=== PATIENT | male | born 1950 | race Caucasian/White ===

== ENCOUNTER 2016-12-10 13:30 | Inpatient (IN) | payer OTHER ==
[2016-12-10 14:16] VITALS: BMI 31.1
[2016-12-17] MEDS ORDERED: CEFAZOLIN/Water 2 GM/20 ML SYRINGE ONE (08:39)
[2016-12-17] MEDS ORDERED: diphenhydrAMINE 25 MG CAP PO PRN (08:40)
[2016-12-17] MEDS ORDERED: Zolpidem Tartrate 5 MG TAB PO PRN ×2 (08:40→09:47)
[2016-12-17] MEDS ORDERED: Acetaminophen 325 MG TAB PO PRN (08:40)
[2016-12-17] MEDS ORDERED: Promethazine HCl 25 MG/ML VIAL IM PRN ×3 (08:40→12:58)
[2016-12-17] MEDS ORDERED: Ondansetron HCl/PF 4 MG/2 ML Vial IVP PRN ×3 (08:40→12:58)
[2016-12-17] MEDS ORDERED: HYDROcodone/Acetaminophen 10/325 mg Tablet PO PRN ×2 (08:40)
[2016-12-17] MEDS ORDERED: Fentanyl 100 MCG/2 ML VIAL SLOW IVP PRN ×2 (08:40)
[2016-12-17] MEDS ORDERED: traMADol HCl 50 MG TAB PO PRN ×2 (08:40→09:47)
[2016-12-17] MEDS ORDERED: Tranexamic Acid 1,000 MG/100 ML BAG ONE ×2 (08:41→12:54)
[2016-12-17] MEDS ORDERED: Tranexamic Acid 1,000 MG in Sodium Chloride 0.9% 100 ML IVPB SCH ×2 (08:45→12:45)
[2016-12-17] MEDS ORDERED: Midazolam HCl 2 mg/2 ml Vial ONE ×2 (09:13→09:49)
[2016-12-17] MEDS ORDERED: Fentanyl 100 MCG/2 ML VIAL ONE ×5 (09:13→13:17)
[2016-12-17] MEDS ORDERED: Vancomycin HCl 1.5 GM in Sodium Chloride 0.9% 250 ML 300 ML IVPB SCH (09:15)
--- NOTE | 2016-12-17 09:32 | RAD ---
CHEST 2 VIEWS: Date: 12/17/16 HISTORY: Preop. COMPARISON: 03/15/08. FINDINGS: Heart size is borderline. Aorta is mildly tortuous. The lungs are clear of infiltrates. There are ar thritic changes of the spine. IMPRESSION: Borderline heart size. POS: OFF
[2016-12-17] MEDS ORDERED: Ropivacaine HCl/PF 250 ML in Premix Bag 1 BAG NERVE BLCK SCH (09:47)
[2016-12-17] MEDS ORDERED: Fentanyl 100 MCG/2 ML VIAL IV PRN (09:47)
[2016-12-17] MEDS ORDERED: HYDROcodone/Acetaminophen 5/325 mg Tablet PO PRN (09:47)
[2016-12-17] MEDS ORDERED: Lidocaine 2% PF 10 ML AMP (For Epidural Use) ONE (11:13)
[2016-12-17] MEDS ORDERED: Propofol 200 MG/20 ML VIAL ONE (11:13)
[2016-12-17] MEDS: Aspirin 325 MG TAB PO SCH ×2 (11:23→20:33)
[2016-12-17] MEDS: Sodium Chloride 0.9% 1,000 ML IV SCH ×2 (11:23→18:21)
[2016-12-17] MEDS ORDERED: Promethazine HCl 25 MG/ML VIAL SLOW IVP PRN (12:58)
--- NOTE | 2016-12-17 12:58 | OP ---
PREOPERATIVE DIAGNOSIS: Degenerative joint disease of right knee. POSTOPERATIVE DIAGNOSIS: Degenerative joint disease of right knee. SURGEON: Boogie Storm M.D. HOTEL ROOM ATTENDANT: Abe Gay PA-C. BLOOD LOSS: Minimal. SPECIMEN: None. DRAINS: None. COMPLICATIONS: None. PROCEDURE IN DETAIL: After informed consent was obtained in the preoperative holding area. The pat ient was taken to the operative suite where general anesthesia was induced. Once adequate level of general anesthesia was obtained, the patient was positioned and a well-padded tourniquet was placed around the right proximal thigh. The right lower extremity was then prepped and draped in the usual sterile fashion. Prior to exsanguination, a time out was called and all members of the surgical te am agreed upon site, surgeon, and patient. The extremity was then exsanguinated and the tourniquet was raised. A midline longitudinal incision was then made directly over the patella extending two f ingerbreadths above the superior pole of the patella and two fingerbreadths inferior to the inferior patellar pole of the patella. Deeper subcutaneous layers were dissected sharply and local bleeding was controlled with Bovie electrocautery. A quad tendon longitudinal split was then made sharply a nd a median parapatellar arthrotomy was carried out both sharp and with Bovie electrocautery, ash d down to one fingerbreadth medial to the tibial tubercle. The knee was then placed into flexion an d the patella was everted nicely, and a copious fat pad ectomy was performed allowing for greater ex posure of the tibia. The computer-assisted distal femoral fiducial was then placed and pinned firml y, and the distal femoral cutting guide was pinned firmly into place. The oscillating saw was then used to remove the appropriate amount of bone. The 4-in-1 cutting block was then placed on the dist al femur and the oscillating saw was used to remove the appropriate amount of bone off of the anteri or, posterior, and chamfer cuts. After completion of bone cuts, the anterior cruciate ligament was resected sharply and the posterior cruciate ligament retractor was placed and the tibia was subluxed for better exposure. Partial meniscectomies were carried out, and the tibial computer-assisted fid ucial was pinned, and the cutting guide was placed. Oscillating saw was then used to remove the bon e with Hohmann retractors used to take care and protect the collateral ligaments. After the tibial resection was performed, a laminar service administrator was placed in between the freshened bone cuts. The knee placed at 90 degrees and further bilateral meniscectomies were carried out, and the curved osteotom e and curettage was used to remove any excess bone spurs in the posterior compartment. Exparel was then injected into the posterior capsule, kalli-articular synovia, pre-patella synovia, and musculatu re surrounding the capsule. The trial femoral component, tibial baseplate were placed with the appr opriate polyethylene trial insert with an appropriate polyethylene spacer and patellar button. The knee was taken through full range of motion with flexion and extension from 0-90 degrees and patell ar broach squarely in the trochlea without any squinting or subluxation noted. The knee was also st able to varus and valgus stressing at 0, 15, 45, and 90 degrees of flexion. The drawer was negative . All trial components were then removed and the keel punch was used to provide the appropriate defe ct in the tibia with a mallet. The freshened bone cuts were copiously irrigated with pulsatile lava ge of about 1-1/2 liters to remove all excess debris. The freshened bone cuts were then dried and w ith suction and lap sponge. The knee was placed in flexion and retractors were placed to provide ac cess to all bone cuts. Tobramycin impregnated methyl methacrylate cement was then placed on the castro shened bone cuts and implants which were malleted firmly into place. Curettage and [place] elevators were used to remove any excess bone cement. The knee was placed into full extension and the patella r button was placed under compression, and the cement was allowed to cure. Once completed, the comp onents were again taken through full range of motion and copious irrigation of the knee was carried out with another liter of normal saline. All components were inspected fully with full range of mot ion and varus and valgus stressing. There was no laxity noted and full extension was observed clinic ally. Primary closure was accomplished with #2 interrupted Vicryl stitch of the arthrotomy defect. This was oversewn with a #2 running Quill barbed stitch. The gravitational platelet system was the n injected into the arthrotomy prior to closure. The subcutaneous layer was then closed with a runn ing 0 barbed Monocryl stitch and skin closure accomplished with a running subcuticular 3-0 Monocryl barbed Quill stitch and augmented with cement on the skin. Tourniquet was lowered. Good spontaneou s return of distal pulses was noted clinically and a sterile dressing was applied to the incision. The procedure was terminated without any complications. The patient was awakened in the operative s uite and the tourniquet was removed, and the patient was taken to the recovery room in stable condit ion.
--- NOTE | 2016-12-17 14:07 | RAD ---
TWO VIEWS RIGHT KNEE: Date: 12-17-16 Comparison: none. History: Evaluate knee following arthroplasty. FINDINGS: Post-operative fluid and gas noted in the suprapatellar bursa anterior to the right knee joint. The patient is status post total knee arthroplasty with a tibial and femoral component noted, well seate d without evidence for hardware failure, acute fracture, or dislocation. There is posterior patella post-operative change noted as well. IMPRESSION: Findings consistent with recent total knee arthroplasty on the right. POS: [facility]
--- NOTE | 2016-12-17 15:03 | PDOC.PN ---
- Subjective Encounter Start Date: 12/17/16 Encounter Start Time: 15:01 Pt seen for followup of medical comorbidities, including hypertension. Denies chest pain, shortness of breath, fevers or chills. - Objective MAR Reviewed: Yes Vital Signs & Weight: Vital Signs (12 hours) Temp Pulse Resp BP Pulse Ox 12/17/16 13:50 98.2 F 77 18 126/85 95 Weight Weight 230 lb Phys Exam - Physical Examination Constitutional: NAD HEENT: moist MMs Neck: supple Respiratory: no wheezing, no rales, no rhonchi, clear to auscultation bilateral Cardiovascular: RRR Gastrointestinal: soft, non-tender Musculoskeletal: pulses present s/p R knee surgery Neurological: moves all 4 limbs Psychiatric: normal affect Skin: no rash Dx/Plan (1) Hypertension Code(s): I10 - ESSENTIAL (PRIMARY) HYPERTENSION Status: Chronic (2) BPH (benign prostatic hyperplasia) Code(s): N40.0 - BENIGN PROSTATIC HYPERPLASIA WITHOUT LOWER URINRY TRACT SYMP Status: Chronic (3) Osteoarthritis Code(s): M19.90 - UNSPECIFIED OSTEOARTHRITIS, UNSPECIFIED SITE Status: Chronic - Plan * . Monitor vital signs, titrate antihypertensives as needed. PRN IV hydralazine for blood pressure spikes. Continue Flomax. s/p R knee surgery. DVT prophylaxis and pain management per orthopedic surgery. Review of Systems - Review of Systems Constitutional: negative: Fever, Chills, Sweats, Weakness, Malaise Respiratory: negative: Cough, Dry, Shortness of Breath, Hemoptysis, SOB with Excertion, Pleuritic Pain, Sputum, Wheezing Cardiovascular: negative: Chest Pain, Palpitations, Orthopnea, Paroxysmal Noc. Dyspnea, Edema, Light Headedness - Medications/Allergies Allergies/Adverse Reactions: Allergies Allergy/AdvReac Type Severity Reaction Status Date / Time No Known Allergies Allergy Unverified 12/10/16 14:18 Medications: Current Medications Acetaminophen (Tylenol) 650 mg PO Q4H PRN PRN Reason: SIMMS/ T > 101F; Mild Pain (1-3) Hydrocodone Bitart/Acetaminophen ([place] 5/325) 1 tab PO Q4H PRN PRN Reason: Mild Pain (1-3) Hydrocodone Bitart/Acetaminophen ([place] 5/325) 2 tab PO Q4H PRN PRN Reason: For Moderate Pain 4-6 Aspirin (Aspirin) 325 mg PO BID [facility] Last Admin: 12/17/16 11:23 Dose: Not Given Cefazolin Sodium (Ancef) 2 gm SLOW IVP 0100,0900,1700 [facility] Stop: 12/18/16 01:01 Clorazepate Dipotassium (Tranxene) 3.75 mg PO ASDIR PRN PRN Reason: Anxiety Diphenhydramine HCl (Benadryl) 25 mg PO Q6H PRN PRN Reason: Itching Fentanyl (Sublimaze) 50 mcg IV Q1H PRN PRN Reason: BREAKTHROUGH PAIN Fentanyl (Pacu-Sublimaze) 50 mcg SLOW IVP Q10MIN PRN PRN Reason: Moderate to Severe Pain (6-10) Stop: 12/17/16 15:59 Ferrous Gluconate (Fergon) 324 mg PO BID-[facility] Sodium Chloride (Normal Saline 0.9%) 1,000 mls @ 100 mls/hr IV .Q10H [facility] Last Admin: 12/17/16 11:23 Dose: Not Given Ropivacaine 250 ml/ Device 250 mls @ 0 mls/hr NERVE BLCK INF [facility] PRN Reason: As Directed Iron/Minerals/Multivitamins (Theragran M) 1 tab PO DAILY [facility] Ketorolac Tromethamine (Toradol) 15 mg IVP Q6H PRN PRN Reason: Moderate Pain (4-6) Stop: 12/20/16 09:48 Lisinopril (Zestril) 20 mg PO HS [facility] Ondansetron HCl (Zofran) 4 mg IVP Q6H PRN PRN Reason: Nausea/Vomiting Ondansetron HCl (Pacu-Zofran) 4 mg IVP ONE PRN PRN Reason: Nausea/Vomiting Stop: 12/17/16 15:59 Fluticasone Propionate Micro 25g Powder 0 each INH DAILY [facility] Promethazine HCl (Phenergan) 12.5 mg IM Q4H PRN PRN Reason: Nausea Promethazine HCl (Pacu-Phenergan) 6.25 mg SLOW IVP ONE PRN PRN Reason: Nausea/Vomiting Stop: 12/17/16 15:59 Promethazine HCl (Pacu-Phenergan) 6.25 mg IM ONE PRN PRN Reason: Nausea/Vomiting Stop: 12/17/16 15:59 Senna/Docusate Sodium (Senokot S) 2 tab PO BID [facility] Sodium Chloride (Flush - Normal Saline) 10 ml IVF PRN PRN PRN Reason: Saline Flush Tamsulosin HCl (Flomax) 0.4 mg PO HS [facility] Tramadol HCl (Ultram) 50 mg PO Q6H PRN PRN Reason: Mild Pain (1-3) Tramadol HCl (Ultram) 100 mg PO Q6H PRN PRN Reason: Moderate Pain 4-6 Zolpidem Tartrate (Ambien) 5 mg PO HSPRN PRN PRN Reason: Insomnia
[2016-12-17] MEDS: Ketorolac Tromethamine 30 MG/ML VIAL IVP PRN (15:04)
[2016-12-17] MEDS ORDERED: hydrALAZINE 20 MG/ML VIAL SLOW IVP PRN (15:06)
[2016-12-17] MEDS ORDERED: Ropivacaine 0.5% HCl/PF (150 MG/30 ML VIAL) ONE (15:18)
[2016-12-17] MEDS ORDERED: Ropivacaine 0.2% HCl/PF (40 MG/20 ML VIAL) ONE (15:19)
[2016-12-17] MEDS: CEFAZOLIN/Water 2 GM/20 ML SYRINGE SLOW IVP SCH (18:23)
[2016-12-17] MEDS: Lisinopril 20 MG TAB PO SCH (20:33)
[2016-12-17] MEDS: Tamsulosin HCl 0.4 MG CAP PO SCH (20:33)
[2016-12-17] MEDS: HYDROcodone/Acetaminophen 5/325 mg Tablet PO PRN (20:36)
[2016-12-17] MEDS ORDERED: Zolpidem Tartrate 5 MG TAB PO SCH (21:00)
[2016-12-17] MEDS ORDERED: Fluticasone Propionate Nasal Spray 16 gm Bottle NASAL PRN (21:45)
[2016-12-18] MEDS: CEFAZOLIN/Water 2 GM/20 ML SYRINGE SLOW IVP SCH (01:30)
[2016-12-18] MEDS: HYDROcodone/Acetaminophen 5/325 mg Tablet PO PRN ×2 (02:44→06:35)
[2016-12-18] MEDS: Sodium Chloride 0.9% 1,000 ML IV SCH ×2 (04:46→08:48)
[2016-12-18] MEDS: traMADol HCl 50 MG TAB PO PRN (05:44)
[2016-12-18 06:38] LABS: Hematocrit 45.4 % (42.0-52.0); Mean Platelet Volume 8.4 fL (7.4-10.4); Red Blood Cell (RBC) Count 4.85 mill/uL (4.70-6.10); White Blood Cell (WBC) Count 9.8 thou/uL (4.8-10.8)
[2016-12-18] MEDS: Multivitamin W/ Minerals 1 TAB PO SCH (08:46)
[2016-12-18] MEDS: Aspirin 325 MG TAB PO SCH ×2 (08:46→20:42)
[2016-12-18] MEDS: Ferrous Gluconate 324 MG TAB PO SCH ×2 (08:46→16:41)
[2016-12-18] MEDS: Ketorolac Tromethamine 30 MG/ML VIAL IVP PRN (08:47)
[2016-12-18] MEDS: Senokot S 8.6-50 MG TAB PO SCH ×2 (08:47→20:42)
[2016-12-18] MEDS ORDERED: HYDROcodone/Acetaminophen 10/325 mg Tablet PO PRN (11:22)
[2016-12-18] MEDS: HYDROcodone/Acetaminophen 10/325 mg Tablet PO PRN ×3 (13:01→21:57)
--- NOTE | 2016-12-18 14:38 | PDOC.EVN ---
Event Note - Event Note Event Note: Chart reviewed. No new acute issues per RN. No overnight events
[2016-12-18] MEDS: Lisinopril 20 MG TAB PO SCH (20:42)
[2016-12-18] MEDS: Tamsulosin HCl 0.4 MG CAP PO SCH (20:42)
[2016-12-19] MEDS: Sodium Chloride 0.9% 1,000 ML IV SCH ×2 (00:39→12:27)
[2016-12-19] MEDS: HYDROcodone/Acetaminophen 10/325 mg Tablet PO PRN ×4 (03:06→14:54)
[2016-12-19 06:41] LABS: Hematocrit 49.3 % (42.0-52.0); Mean Platelet Volume 8.5 fL (7.4-10.4); Red Blood Cell (RBC) Count 5.28 mill/uL (4.70-6.10)
[2016-12-19] MEDS: Ferrous Gluconate 324 MG TAB PO SCH (08:26)
[2016-12-19] MEDS: Aspirin 325 MG TAB PO SCH (08:26)
[2016-12-19] MEDS: Multivitamin W/ Minerals 1 TAB PO SCH (08:26)
[2016-12-19] MEDS: Senokot S 8.6-50 MG TAB PO SCH (08:26)
[2016-12-19 09:22] VITALS: TEMP 98.3
[2016-12-19 10:09] VITALS: BP 158/83
--- NOTE | 2016-12-19 10:35 | DIS ---
PRIMARY CARE PHYSICIAN: Dr. León PRIMARY ATTENDING: Dr. Boogie Storm DATE OF ADMISSION: 12/17/2016 DATE OF DISCHARGE: 12/19/2016 DISCHARGE DISPOSITION: Home. PRIMARY DISCHARGE DIAGNOSES: Status post right total knee replacement. SECONDARY DISCHARGE DIAGNOSES: Benign enlargement of prostate, hypertension, obesity with BMI 31, o steoarthritis. PRIMARY PROCEDURE/OPERATION: Right total knee replacement. RADIOLOGICAL INVESTIGATION: Knee x-ray, chest x-ray. SIGNIFICANT LABS: WBC 12.0, hemoglobin 16.8, platelets 196. DISCHARGE MEDICATIONS: Aspirin 325 mg p.o. b.i.d. for DVT prophylaxis, Ambien 10 mg p.o. at bedtime , zinc 1 tablet daily, tramadol 50 mg q.6h. p.r.n., Flomax 0.4 mg p.o. daily at bedtime, multivitami n 1 tablet p.o. daily, magnesium oxide 400 mg p.o. daily, lisinopril 20 mg p.o. at bedtime, [place] 10 one or two tablets q.4 hourly p.r.n., Flonase nasal spray daily, clorazepate 1 tablet p.o. as direc july. CONTRAINDICATIONS: None. CODE STATUS: FULL CODE. INPATIENT CONSULTANTS: Dr. Storm was primary, Sound Team was consulted for medical comanagement. TEST RESULTS PENDING ON DISCHARGE: None. ALLERGIES: No known drug allergies. DISCHARGE PLAN: Post hospital, the patient will follow up with Dr. Storm on 01/15/2017 at 1:00 p.m . The patient will make appointment with Dr. León in 1 week. HOSPITAL COURSE: The patient is a 66-year-old male with the above mentioned medical problems who wa s electively admitted by Dr. Storm on 12/17/2016 for right total knee replacement which was done on that day and postoperatively at [facility] Sound Team was consulted for medical comanagement. All medical problems remained stable. We resume home medication while in hospital. The patient w as given aspirin for DVT prophylaxis. On discharge, we continued similar home medication. Patient did very well with [facility] protocol treatment. Patient is seen and examined at bedside today. All review of systems reviewed with him and negative . PHYSICAL EXAMINATION: VITAL SIGNS: Temperature 98.3, pulse 94, respiratory rate 20, saturation 96%, blood pressure 158/83 . Weight 230 pounds. GENERAL: The patient is currently alert, awake, no acute distress. HEAD: Normocephalic, atraumatic. LUNGS: Clear to auscultation without any rhonchi. CARDIAC: S1, S2 regular, without any murmurs. ABDOMEN: Soft and benign. EXTREMITIES: No edema. NEUROLOGIC: Nonfocal examination. The patient is medically stable for discharge and we will sign off.
[2016-12-19] MEDS: traMADol HCl 50 MG TAB PO PRN (13:17)
== END 2016-12-19 15:20 | disposition home or self-care (01) | DRG 470 ==
LOC: SURG A 12-17 08:25 → SJJU 12-17 14:17
PROVIDERS: ADMIT Orthopaedic Surgery; ATTEND Orthopaedic Surgery
PROC: 0SRC0J9 Replacement of Right Knee Joint with Synthetic Substitute, Cemented, Open Approach (ICD-10-PCS; principal; 2016-12-17)
PROC: 3E0T3BZ Introduction of Anesthetic Agent into Peripheral Nerves and Plexi, Percutaneous Approach (ICD-10-PCS; 2016-12-17)
DX: M17.11 Unilateral primary osteoarthritis, right knee (principal); I10 Essential (primary) hypertension; N40.0 Benign prostatic hyperplasia without lower urinary tract symptoms; E66.9 Obesity, unspecified; Z68.31 Body mass index [BMI] 31.0-31.9, adult; F41.9 Anxiety disorder, unspecified; E78.5 Hyperlipidemia, unspecified; M10.9 Gout, unspecified
CPT/HCPCS: 36415; 71020; 85027; C1713; C1776; G8978-GP-CK; G8979-GP-CI; J1885; J2001; J2250; J2405; J2704; J2795; J3010; J3370; J7050

== ENCOUNTER 2016-12-10 14:00 | Outpatient (CLI) | payer OTHER ==
[2016-12-10 15:37] LABS: PTT 29.4 SEC (22.9-36.1); Prothrombin Time 13.2 SEC (12.0-14.7)
[2016-12-10 15:49] LABS: Bilirubin Negative (Negative); Blood, Urine Small (Negative); Glucose, Urine (Dipstick) Negative (Negative); Ketone, Urine Negative (Negative); Nitrite Negative (Negative); Protein, Urine (Dipstick) Negative (Neg-Trace); Urobilinogen 0.2 mg/dL (0.2-1.0)
[2016-12-10 15:53] LABS: Bacteria/HPF None Seen HPF (None Seen); Hyaline Casts/LPF 0-3 HYALINE CAST LPF (0-3 Hyaline); Squamous Epithelial None Seen HPF (0-3); WBC/HPF None Seen HPF (0-3)
[2016-12-10 16:09] LABS: Anion Gap 10 mmol/L (10-20); BUN (Urea Nitrogen) 14 mg/dL (8.4-25.7); Calc. Creatinine Clearance 0 mL/min (70-130); Calcium 9.8 mg/dL (7.8-10.44); Carbon Dioxide 32 mmol/L (23-31); Chloride 98 mmol/L (98-107); Estimated GFR-MDRD 64
--- NOTE | 2016-12-11 14:43 | EKG ---
Test Reason : Blood Pressure : / mmHG Vent. Rate : 080 BPM Atrial Rate : 080 BPM P-R Int : 190 ms QRS Dur : 116 ms QT Int : 354 ms P-R-T Axes : 070 -18 056 degrees QTc Int : 408 ms Normal sinus rhythm Non-specific intra-ventricular conduction delay Abnormal ECG Confirmed by PETE HUDDLESTON ([id number]) on 12/11/2016 2:42:55 PM Referred By: JACQUELINE Confirmed By:PETE HUDDLESTON
== END 2016-12-10 14:01 | disposition home or self-care (01) ==
LOC: LABBT 14:00
PROVIDERS: ATTEND Orthopaedic Surgery
DX: Z01.818 Encounter for other preprocedural examination (principal); M17.11 Unilateral primary osteoarthritis, right knee
CPT/HCPCS: 80048; 81001; 85610; 85730; 86850; 86900; 86901; 87081; 93005; 93010

== ENCOUNTER 2017-12-19 09:19 | Outpatient (CLI) | payer OTHER ==
--- NOTE | 2017-12-19 14:56 | MRI ---
MRI RIGHT SHOULDER WITHOUT CONTRAST: 12/19/17 HISTORY: S46.211A - strain of muscle/tendon. COMPARISON: None. FINDINGS: BICEPS TENDON: There is rupture of the intra-articular biceps tendon which retracts it to the intertubercular groove . No normal intra-articular biceps tendon is appreciated. LABRUM: There is tearing throughout the inferior as well as anterior inferior labrum. There is also tearing a bout the superior labrum. The posterior labrum appears to be relatively intact. ROTATOR CUFF: There is a full thickness rupture of the anterior 1 cm fibers of the supraspinatus tendon from the fo otprint with only a 6 mm gap. Severe tendinosis of the remainder of the supraspinatus and infraspinat us tendons. Undersurface partial tearing of approximately 20% of the infraspinatus tendon. The subsca pularis is moderately tendinotic with mild undersurface deep lamination. BONES: No fracture. No malalignment. Moderate degenerative disease acromioclavicular joint. Some early artic ular surface remodeling of the posterior inferior glenoid. MUSCLES: Muscle bulk is without significant atrophy. Soft tissue large subacromial subdeltoid effusion. IMPRESSION: 1. Full thickness rupture of the intra-articular biceps tendon retracted to the intertubercular groove with no tenosynovitis. 2. Full thickness tear of the anterior 1 cm fibers supraspinatus tendon from the footprint with a 6 mm gap. There is extensive tendinosis of the undersurface partial tearing of remainder of the pos terior fibers of the supraspinatus tendon. 3. Extensive interstitial delamination of the infraspinatus tendon with moderate tendinosis. 4. There is a tear throughout the superior, anterior and inferior labrum with relative sparring of the posterior labrum. 5. Moderate joint effusion as well as synovitis and subacromial subdeltoid bursal effusion. POS: OFF
== END 2017-12-19 09:20 | disposition home or self-care (01) ==
LOC: MRI 09:19
PROVIDERS: ATTEND Internal Medicine Rheumatology
DX: S46.211A Strain of muscle, fascia and tendon of other parts of biceps, right arm, initial encounter (principal); M75.101 Unspecified rotator cuff tear or rupture of right shoulder, not specified as traumatic; M25.411 Effusion, right shoulder; M75.91 Shoulder lesion, unspecified, right shoulder

== ENCOUNTER 2018-12-04 10:12 | Outpatient (CLI) | payer MEDICARE, OTHER ==
[2018-12-04 14:44] LABS: #Basophils 0.1 thou/uL (0.0-0.2); #Eosinphils 0.3 thou/uL (0.0-0.7); #Lymphocytes 2.8 thou/uL (1.20-3.40); #Monocytes 0.9 thou/uL (0.11-0.59); #Neutrophils 5.2 thou/uL (1.40-6.50); %Basophils 0.5 % (0.0-1.0); %Eosinophils 3.4 % (0.0-10.0); %Lymphocytes 30.2 % (21.0-51.0); %Monocytes 9.6 % (0.0-10.0); %Neutrophils 56.2 % (42.0-75.0); Hemoglobin 17.2 g/dL (14.0-18.0); Mean Corpuscular HGB CONC 34.6 g/dL (32.0-36.0); Mean Corpuscular Volume 89.4 fL (78.0-98.0); Mean Platelet Volume 7.8 fL (7.4-10.4); Platelet Count 267 thou/uL (130-400); RBC Distribution Width 12.3 % (11.5-14.5); Red Blood Cell (RBC) Count 5.57 mill/uL (4.70-6.10); White Blood Cell (WBC) Count 9.3 thou/uL (4.8-10.8)
[2018-12-04 15:05] LABS: Anion Gap 14 mmol/L (10-20); BUN (Urea Nitrogen) 18 mg/dL (8.4-25.7); Calc. Creatinine Clearance 0 mL/min (70-130); Calcium 9.9 mg/dL (7.8-10.44); Carbon Dioxide 27 mmol/L (23-31); Chloride 98 mmol/L (98-107); Estimated GFR-MDRD 62; Glucose 99 mg/dL (80-115); Potassium 4.3 mmol/L (3.5-5.1); Sodium 135 mmol/L (136-145)
--- NOTE | 2018-12-07 11:40 | EKG ---
Test Reason : Blood Pressure : / mmHG Vent. Rate : 079 BPM Atrial Rate : 079 BPM P-R Int : 194 ms QRS Dur : 116 ms QT Int : 366 ms P-R-T Axes : 063 -32 034 degrees QTc Int : 419 ms Normal sinus rhythm Left axis deviation Abnormal ECG When compared with ECG of 10-DEC-2016 14:44, No significant change was found Confirmed by Eda TILLEY ([id number]) on 12/07/2018 11:39:48 AM Referred By: JACQUELINE Confirmed By:Eda TILLEY
== END 2018-12-04 10:13 | disposition home or self-care (01) ==
LOC: LABBT 10:12
PROVIDERS: ATTEND Orthopaedic Surgery
DX: Z01.818 Encounter for other preprocedural examination (principal); M75.101 Unspecified rotator cuff tear or rupture of right shoulder, not specified as traumatic
CPT/HCPCS: 80048; 85025; 93005; 93010

== ENCOUNTER 2018-12-10 06:15 | Day surgery (SDC) | payer MEDICARE ==
[2018-12-04 13:59] VITALS: BMI 30.5
[2018-12-10] MEDS ORDERED: Midazolam HCl 2 mg/2 ml Vial ONE (06:50)
[2018-12-10] MEDS ORDERED: Fentanyl 100 MCG/2 ML VIAL ONE (06:50)
[2018-12-10] MEDS ORDERED: traMADol HCl 50 MG TAB PO PRN ×2 (07:10)
[2018-12-10] MEDS ORDERED: Zolpidem Tartrate 5 MG TAB PO PRN (07:10)
[2018-12-10] MEDS ORDERED: Fentanyl 100 MCG/2 ML VIAL IV PRN (07:10)
[2018-12-10] MEDS ORDERED: Promethazine HCl 25 MG/ML VIAL IM PRN (07:10)
[2018-12-10] MEDS ORDERED: Ondansetron PF 4 MG/2 ML Vial IVP PRN (07:10)
[2018-12-10] MEDS ORDERED: HYDROcodone/Acetaminophen 10/325 mg Tablet PO PRN ×2 (07:10)
[2018-12-10] MEDS ORDERED: Ropivacaine 0.2% 550 ML 550 ML NERVE BLCK SCH (07:10)
[2018-12-10] MEDS ORDERED: Ketorolac Tromethamine 30 MG/ML VIAL IVP SCH (12:00)
--- NOTE | 2018-12-10 12:44 | OP ---
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 PROCEDURES PERFORMED: Open acromioplasty and rotator cuff repair. ANESTHESIA: General. BLOOD LOSS: Less than 100. SPECIMEN: None. DRAIN: None. COMPLICATION: None. DESCRIPTION OF PROCEDURE: The patient was taken to the operating room, where general anesthesia was induced. He was placed in a beach chair position. Right arm was prepped and draped in the usual sterile fashion. I made a standard deltoid-splitting approach, anterior and inferior acromioplasty performed. Bursal tissue was excised. I identified and mobilized the rotator cuff. It was retracted and stiff. I did a convergence closure with Cottony Dacron suture, and then I freshened up the greater tuberosity all the way to the articular cartilage margin to get a good bleeding edge. I placed two additional corkscrew suture anchors from [employer] and placed Angelo-Angel sutures through the rotator cuff getting a good repair down to bleeding bone. I then reinforced this with a SwiveLock device for a double row style repair. The joint was irrigated. Deltoid was repaired back to bone using #1 Ethibond, subcu closed with 2-0 Vicryl, and skin was closed with jacqueline. Job ID: [id number]
== END 2018-12-10 12:30 | disposition home or self-care (01) ==
LOC: SDC 06:15
PROVIDERS: ATTEND Orthopaedic Surgery
PROC: 0LM10ZZ Reattachment of Right Shoulder Tendon, Open Approach (ICD-10-PCS; principal; 2018-12-10)
PROC: 0LQ10ZZ Repair Right Shoulder Tendon, Open Approach (ICD-10-PCS; 2018-12-10)
PROC: 0RQG0ZZ Repair Right Acromioclavicular Joint, Open Approach (ICD-10-PCS; 2018-12-10)
PROC: 3E0T3BZ Introduction of Anesthetic Agent into Peripheral Nerves and Plexi, Percutaneous Approach (ICD-10-PCS; 2018-12-10)
DX: S46.211A Strain of muscle, fascia and tendon of other parts of biceps, right arm, initial encounter (principal); M75.101 Unspecified rotator cuff tear or rupture of right shoulder, not specified as traumatic; I11.9 Hypertensive heart disease without heart failure; M10.9 Gout, unspecified; E78.5 Hyperlipidemia, unspecified; F41.9 Anxiety disorder, unspecified; G89.18 Other acute postprocedural pain; Z79.899 Other long term (current) drug therapy; X50.0XXA Overexertion from strenuous movement or load, initial encounter
CPT/HCPCS: 23412; 64416; 97139; A4306; J0690; J2250; J2795; J3010

== ENCOUNTER 2021-02-04 19:30 | Outpatient (CLI) | payer MEDICARE, OTHER | END 2021-02-04 19:31 | disposition home or self-care (01) | LOC: SLEEPLAB 19:30 | PROVIDERS: ATTEND Internal Medicine | DX: G47.33 Obstructive sleep apnea (adult) (pediatric) (principal); G47.00 Insomnia, unspecified; I10 Essential (primary) hypertension | CPT/HCPCS: 95811 ==

== ENCOUNTER 2021-06-19 08:08 | Outpatient (CLI) | payer MEDICARE, OTHER | END 2021-06-19 08:09 | disposition home or self-care (01) | LOC: TBSIIMAG 08:08 | PROVIDERS: ATTEND Surgery | DX: N20.0 Calculus of kidney (principal); M47.26 Other spondylosis with radiculopathy, lumbar region; M48.061 Spinal stenosis, lumbar region without neurogenic claudication | CPT/HCPCS: 72120; 72148; 74018 ==

== ENCOUNTER 2022-10-11 11:11 | Outpatient (CLI) | payer MEDICARE, OTHER ==
[2022-10-11 12:45] LABS: Bilirubin Neg (Negative); Blood, Urine 10 (Negative); Clarity Clear (Clear); Glucose, Urine (Dipstick) Normal (Negative); Ketone, Urine Negative (Negative); Leukocyte Negative (Negative); Nitrite Negative (Negative); Protein, Urine (Dipstick) Negative (Neg-Trace); Urobilinogen Normal mg/dL (Less than 2)
[2022-10-11 12:59] LABS: Bacteria/HPF Rare-Few HPF (None Seen); Squamous Epithelial None Seen HPF (0-3); WBC/HPF 0-3 HPF (0-3)
[2022-10-11 13:06] LABS: Hemoglobin 13.5 g/dL (13.5-17.5); Mean Corpuscular HGB CONC 33.8 g/dL (32.0-36.0); Mean Corpuscular Hemoglobin 31.6 pg (27.0-33.0); Mean Corpuscular Volume 93.7 fl (81.2-95.1); Mean Platelet Volume 10.5 fl (7.4-10.4); Platelet Count 299 10x3/uL (150-450); RBC Distribution Width 12.6 % (11.5-14.5); Red Blood Cell (RBC) Count 4.27 10x6/uL (4.32-5.72); White Blood Cell (WBC) Count 6.7 10x3/uL (3.5-10.5)
[2022-10-11 13:12] LABS: INR-International Normal Ratio 0.9; PTT 29.3 sec (22.0-33.0); Prothrombin Time 10.2 sec (9.5-12.1)
[2022-10-11 13:17] LABS: Anion Gap 16 mmol/L (10-20); BUN (Urea Nitrogen) 23 mg/dL (8.4-25.7); Calc. Creatinine Clearance 0 mL/min (70-130); Calcium 9.7 mg/dL (7.8-10.44); Carbon Dioxide 29 mmol/L (23-31); Chloride 99 mmol/L (98-107); Estimated GFR 68; Glucose 104 mg/dL (80-115); Potassium 4.5 mmol/L (3.5-5.1); Sodium 139 mmol/L (136-145)
== END 2022-10-11 11:12 | disposition home or self-care (01) ==
LOC: LABBT 11:11
PROVIDERS: ATTEND Urology
DX: Z01.818 Encounter for other preprocedural examination (principal); N40.1 Benign prostatic hyperplasia with lower urinary tract symptoms; M10.9 Gout, unspecified; N28.1 Cyst of kidney, acquired; N20.0 Calculus of kidney; Z79.890 Hormone replacement therapy
CPT/HCPCS: 80048; 81001; 85027; 85610; 85730; 87086; 93005; 93010

== ENCOUNTER 2023-04-15 10:07 | Outpatient (CLI) | payer MEDICARE, OTHER ==
[2023-04-15 12:01] LABS: Bilirubin Neg (Negative); Blood, Urine 25 (Negative); Clarity Clear (Clear); Glucose, Urine (Dipstick) Normal (Negative); Ketone, Urine Negative (Negative); Leukocyte Negative (Negative); Nitrite Negative (Negative); Protein, Urine (Dipstick) 30 mg/dl (Neg-Trace); Urobilinogen Normal mg/dL (Less than 2)
[2023-04-15 12:05] LABS: Hemoglobin 13.8 g/dL (13.5-17.5); Mean Corpuscular HGB CONC 36.3 g/dL (32.0-36.0); Mean Corpuscular Hemoglobin 33.5 pg (27.0-33.0); Mean Corpuscular Volume 92.2 fl (81.2-95.1); Platelet Count 277 10x3/uL (150-450); RBC Distribution Width 12.2 % (11.5-14.5); Red Blood Cell (RBC) Count 4.12 10x6/uL (4.32-5.72); White Blood Cell (WBC) Count 7.7 10x3/uL (3.5-10.5)
[2023-04-15 12:22] LABS: INR-International Normal Ratio 0.9; PTT 27.2 sec (22.0-33.0); Prothrombin Time 10.2 sec (9.5-12.1)
[2023-04-15 12:24] LABS: Anion Gap 13 mmol/L (10-20); BUN (Urea Nitrogen) 15 mg/dL (8.4-25.7); Calc. Creatinine Clearance 0 mL/min (70-130); Calcium 9.5 mg/dL (7.8-10.44); Carbon Dioxide 27 mmol/L (23-31); Chloride 101 mmol/L (98-107); Estimated GFR 62; Glucose 143 mg/dL (80-115); Sodium 137 mmol/L (136-145)
[2023-04-15 12:41] LABS: Bacteria/HPF Rare-Few HPF (None Seen); Squamous Epithelial 0-3 HPF (0-3); WBC/HPF 0-3 HPF (0-3)
== END 2023-04-15 10:08 | disposition home or self-care (01) ==
LOC: LABBT 10:07
PROVIDERS: ATTEND Urology
DX: Z01.818 Encounter for other preprocedural examination (principal); Z51.81 Encounter for therapeutic drug level monitoring; Z12.5 Encounter for screening for malignant neoplasm of prostate; N40.1 Benign prostatic hyperplasia with lower urinary tract symptoms; N20.0 Calculus of kidney; N28.1 Cyst of kidney, acquired; M10.9 Gout, unspecified; Z79.890 Hormone replacement therapy
CPT/HCPCS: 80048; 81001; 85027; 85610; 85730; 87086; 93005; 93010

== ENCOUNTER 2023-04-23 07:11 | Observation (INO) | payer MEDICARE, OTHER ==
[2023-04-15 11:14] VITALS: BMI 35.6
[2023-04-23] MEDS ORDERED: LevoFLOXacin D5W 500 mg (100 mL) BAG ONE (08:21)
[2023-04-23] MEDS ORDERED: Midazolam HCl 2 mg/2 ml Vial ONE (08:54)
[2023-04-23] MEDS ORDERED: PROPOFOL 20 ML ONE (09:08)
[2023-04-23] MEDS ORDERED: Rocuronium Bromide 10 MG/ML (10ML VIAL) ONE (09:08)
[2023-04-23] MEDS ORDERED: Lidocaine 2% PF 5 ML VIAL ONE (09:08)
[2023-04-23] MEDS ORDERED: fentaNYL PF 100 MCG/2 ML SYRINGE ONE (09:09)
[2023-04-23] MEDS ORDERED: SUGAMMADEX SODIUM 200 MG/2 ML VIAL ONE ×2 (11:10→12:10)
[2023-04-23] MEDS ORDERED: Ondansetron PF 4 MG/2 ML Vial IVP PRN (12:46)
[2023-04-23] MEDS ORDERED: diphenhydrAMINE 50 MG/ML VIAL IVP PRN (12:46)
[2023-04-23] MEDS ORDERED: HYDROcodone/Acetaminophen 5/325 mg Tablet PO PRN (12:46)
[2023-04-23] MEDS ORDERED: Mag-Al 1200 mg/1200 mg/30 ML UDCUP PO PRN (12:46)
[2023-04-23] MEDS ORDERED: fentaNYL 50 mcg/mL 1 mL Vial ONE (12:57)
[2023-04-23] MEDS ORDERED: Morphine 4 MG/ML VIAL ONE (13:18)
[2023-04-23 13:40] LABS: #Eosinphils 0.2 thou/uL (0.0-0.7); #Monocytes 0.6 thou/uL (0.11-0.59); #Neutrophils 3.6 thou/uL (1.40-6.50); %Basophils 0.6 % (0.0-1.0); %Eosinophils 3.2 % (0.0-10.0); %Lymphocytes 28.1 % (21.0-51.0); %Neutrophils 57.5 % (42.0-75.0); Hematocrit 35.4 % (42.0-52.0); Hemoglobin 12.5 g/dL (14.0-18.0); Mean Corpuscular HGB CONC 35.3 g/dL (32.0-36.0); Mean Corpuscular Hemoglobin 33.8 pg (27.0-31.0); Mean Corpuscular Volume 95.7 fl (78.0-98.0); Platelet Count 232 10x3/uL (130-400); RBC Distribution Width 12.5 % (11.5-14.5); White Blood Cell (WBC) Count 6.3 10x3/uL (4.8-10.8)
[2023-04-23 14:16] LABS: Anion Gap 15 mmol/L (10-20); BUN (Urea Nitrogen) 13 mg/dL (8.4-25.7); Calc. Creatinine Clearance 116 mL/min (70-130); Calcium 8.7 mg/dL (7.8-10.44); Carbon Dioxide 25 mmol/L (23-31); Chloride 101 mmol/L (98-107); Estimated GFR 81; Glucose 140 mg/dL (80-115); Sodium 137 mmol/L (136-145)
[2023-04-23] MEDS: hydrALAZINE 20 MG/ML VIAL SLOW IVP PRN (15:03)
[2023-04-23] MEDS: Oxybutynin 5 MG TAB PO PRN (15:03)
[2023-04-23] MEDS: HYDROcodone/Acetaminophen 5/325 mg Tablet PO PRN (15:33)
[2023-04-23] MEDS: Benzocaine/Menthol 1 LOZ LOZ PO PRN (16:46)
[2023-04-23] MEDS: Morphine 2 MG/ML VIAL SLOW IVP PRN (19:35)
[2023-04-23] MEDS: Famotidine/PF 20 mg/2ml Vial SLOW IVP SCH (19:35)
[2023-04-23] MEDS: PARoxetine 20 MG TAB PO SCH (19:36)
[2023-04-23] MEDS: Docusate 100 MG CAP PO SCH (19:36)
[2023-04-23] MEDS: Tamsulosin HCl 0.4 MG CAP PO SCH (19:36)
[2023-04-23] MEDS: Lisinopril 20 MG TAB PO SCH (19:37)
[2023-04-23] MEDS: Allopurinol 300 MG TAB PO SCH (19:37)
[2023-04-23] MEDS: Hydrochlorothiazide 25 MG TAB PO SCH (19:37)
[2023-04-23] MEDS: Sodium Chloride 0.9% 1,000 ML IV SCH (22:20)
[2023-04-23] MEDS: Zolpidem Tartrate 5 MG TAB PO PRN (22:53)
[2023-04-24 05:18] LABS: #Eosinphils 0.2 thou/uL (0.0-0.7); #Monocytes 0.8 thou/uL (0.11-0.59); #Neutrophils 4.4 thou/uL (1.40-6.50); %Basophils 0.4 % (0.0-1.0); %Eosinophils 2.1 % (0.0-10.0); %Monocytes 10.8 % (0.0-10.0); %Neutrophils 62.4 % (42.0-75.0); Hematocrit 34.7 % (42.0-52.0); Hemoglobin 12.2 g/dL (14.0-18.0); Mean Corpuscular HGB CONC 35.2 g/dL (32.0-36.0); Mean Corpuscular Volume 96.7 fl (78.0-98.0); Mean Platelet Volume 10.3 fL (7.4-10.4); Platelet Count 225 10x3/uL (130-400); RBC Distribution Width 12.6 % (11.5-14.5); Red Blood Cell (RBC) Count 3.59 mill/uL (4.70-6.10)
[2023-04-24] MEDS: cefTRIAXone\\ROCEPHIN 1 GM in Sodium Chloride 0.9% 100 ML IVPB SCH (05:30)
[2023-04-24 05:34] LABS: Anion Gap 13 mmol/L (10-20); BUN (Urea Nitrogen) 13 mg/dL (8.4-25.7); Calc. Creatinine Clearance 116 mL/min (70-130); Calcium 8.7 mg/dL (7.8-10.44); Carbon Dioxide 25 mmol/L (23-31); Chloride 101 mmol/L (98-107); Estimated GFR 81; Glucose 132 mg/dL (80-115); Potassium 3.5 mmol/L (3.5-5.1); Sodium 135 mmol/L (136-145)
[2023-04-24 07:52] LABS: Hemoglobin A1c 6.6 % (4.0-6.0)
[2023-04-24 08:25] VITALS: BP 141/72; TEMP 98
[2023-04-24] MEDS: Finasteride 5 MG TAB PO SCH (09:08)
== END 2023-04-24 11:59 | disposition home or self-care (01) ==
LOC: SDC 07:11 → SURG B 12:50
PROVIDERS: ADMIT Urology; ATTEND Urology
PROC: 0VT08ZZ Resection of Prostate, Via Natural or Artificial Opening Endoscopic (ICD-10-PCS; principal; 2023-04-23)
DX: N40.1 Benign prostatic hyperplasia with lower urinary tract symptoms (principal); N13.8 Other obstructive and reflux uropathy; I10 Essential (primary) hypertension; E78.5 Hyperlipidemia, unspecified; M10.9 Gout, unspecified; Z96.651 Presence of right artificial knee joint; Z79.899 Other long term (current) drug therapy
CPT/HCPCS: 52601; 80048 ×2; 83036; 85025 ×2; 86850; 86900; 86901; A4333; J0360; J3010; 36415; 88305; J0696; J1956; J2001; J2250; J2270; J2272; J2704; J3490; J7050; S0028

== ENCOUNTER 2024-01-20 12:32 | Inpatient (IN) | payer MEDICARE ==
[2024-01-20] MEDS ORDERED: Acetaminophen/Codeine 30-300mg Tablet PO PRN (14:54)
[2024-01-20] MEDS ORDERED: Lorazepam 2 MG/ML VIAL IM PRN (15:01)
[2024-01-20] MEDS ORDERED: Ondansetron ODT 4 MG TAB PO PRN (15:01)
[2024-01-20] MEDS ORDERED: Lorazepam 1 MG TAB PO PRN (15:01)
[2024-01-20] MEDS ORDERED: Electrolyte Replacement Protocol FS SCH (15:15)
[2024-01-20 16:39] VITALS: BMI 35.5
[2024-01-20] MEDS: Lorazepam 1 MG TAB PO SCH (16:45)
[2024-01-20] MEDS: Allopurinol 300 MG TAB PO SCH (20:19)
[2024-01-20] MEDS: Famotidine 20 MG TAB PO SCH (20:19)
[2024-01-21] MEDS ORDERED: Lorazepam 1 MG TAB ONE ×2 (04:11→10:11)
[2024-01-21] MEDS ORDERED: Famotidine 20 MG TAB ONE (09:11)
[2024-01-21] MEDS ORDERED: Multivit, Therapeutic 1 TAB ONE (09:11)
[2024-01-21] MEDS ORDERED: Folic Acid 1 MG TAB ONE (09:11)
[2024-01-21] MEDS ORDERED: Lorazepam 1 MG TAB PO PRN (15:01)
[2024-01-21] MEDS ORDERED: Labetalol HCl 100 MG/20 ML VIAL SLOW IVP PRN (16:30)
[2024-01-22] MEDS: Multivit, Therapeutic 1 TAB PO SCH (09:45)
[2024-01-22] MEDS: Folic Acid 1 MG TAB PO SCH (09:45)
[2024-01-22] MEDS: PARoxetine 20 MG TAB PO SCH (16:21)
[2024-01-22] MEDS: Lorazepam 0.5 MG TAB PO SCH (17:12)
[2024-01-22] MEDS: Dexmedetomidine In 0.9 % NaCl 100 ML ONE (19:02)
[2024-01-22] MEDS: Acetaminophen 325 MG TAB PO PRN (23:13)
[2024-01-22] MEDS: Haloperidol Lactate 5 MG/ML VIAL SLOW IVP SCH (23:37)
[2024-01-22] MEDS ORDERED: Dexmedetomidine In 0.9 % NaCl 100 ML IV SCH (23:45)
[2024-01-22] MEDS ORDERED: Lorazepam 2 MG/ML VIAL SLOW IVP SCH (23:59)
[2024-01-23 01:40] LABS: #Basophils 0.07 10x3/uL (0.0-0.2); #Neutrophils 5.85 10x3/uL (1.40-6.50); %Basophils 0.7 % (0.0-1.0); %Eosinophils 2.1 % (0.0-10.0); %Monocytes 11.7 % (0.0-10.0); %Neutrophils 62.2 % (42.0-75.0); Hematocrit 45.9 % (42.0-52.0); Hemoglobin 15.5 g/dL (14.0-18.0); Mean Corpuscular HGB CONC 33.8 g/dL (32.0-36.0); Mean Corpuscular Hemoglobin 31.7 pg (27.0-31.0); Mean Corpuscular Volume 93.9 fL (78.0-98.0); Mean Platelet Volume 10.6 fL (7.4-10.4); Platelet Count 348 10x3/uL (130-400); RBC Distribution Width 14.1 % (11.5-14.5); Red Blood Cell (RBC) Count 4.89 mill/uL (4.70-6.10); White Blood Cell (WBC) Count 9.41 10x3/uL (4.8-10.8)
[2024-01-23] MEDS: Labetalol HCl 100 MG/20 ML VIAL SLOW IVP PRN (02:04)
[2024-01-23] MEDS: hydrALAZINE 20 MG/ML VIAL SLOW IVP PRN (02:07)
[2024-01-23] MEDS: Zolpidem Tartrate 5 MG TAB PO SCH ×2 (02:10→20:39)
[2024-01-23 03:51] LABS: #Basophils 0.05 10x3/uL (0.0-0.2); %Basophils 0.5 % (0.0-1.0); %Eosinophils 3.1 % (0.0-10.0); %Lymphocytes 23.6 % (21.0-51.0); %Monocytes 8.9 % (0.0-10.0); %Neutrophils 63.6 % (42.0-75.0); Hematocrit 48.8 % (42.0-52.0); Hemoglobin 16.1 g/dL (14.0-18.0); Mean Corpuscular Hemoglobin 30.5 pg (27.0-31.0); Mean Corpuscular Volume 92.4 fL (78.0-98.0); Mean Platelet Volume 10.2 fL (7.4-10.4); Platelet Count 301 10x3/uL (130-400); RBC Distribution Width 14.3 % (11.5-14.5); Red Blood Cell (RBC) Count 5.28 mill/uL (4.70-6.10)
[2024-01-23] MEDS: Lorazepam 2 MG/ML VIAL SLOW IVP SCH (04:12)
[2024-01-23 04:16] LABS: Anion Gap 12 mmol/L (10-20); BUN (Urea Nitrogen) 16 mg/dL (8.4-25.7); Calc. Creatinine Clearance 113 mL/min (70-130); Calcium 8.4 mg/dL (7.8-10.44); Carbon Dioxide 24 mmol/L (23-31); Chloride 103 mmol/L (98-107); Estimated GFR 73; Glucose 107 mg/dL (83-110); Magnesium 1.9 mg/dL (1.6-2.6); Phosphorus 2.3 mg/dL (2.3-4.7); Potassium 3.4 mmol/L (3.5-5.1); Sodium 136 mmol/L (136-145)
[2024-01-23] MEDS: Dextrose 5%-Lactated Ringers 1,000 ML IV SCH (06:03)
[2024-01-23] MEDS ORDERED: Potassium Chloride 20 MEQ TAB PO SCH (08:00)
[2024-01-23] MEDS: Fluticasone Propionate Nasal Spray 16 gm Bottle NASAL SCH (08:27)
[2024-01-23 09:43] LABS: Anion Gap 13 mmol/L (10-20); BUN (Urea Nitrogen) 23 mg/dL (8.4-25.7); Calc. Creatinine Clearance 397 mL/min (70-130); Carbon Dioxide 28 mmol/L (23-31); Chloride 106 mmol/L (98-107); Estimated GFR 53; Glucose 126 mg/dL (83-110); Magnesium 1.9 mg/dL (1.6-2.6); Potassium 4.6 mmol/L (3.5-5.1); Sodium 142 mmol/L (136-145)
[2024-01-23] MEDS: Lisinopril 20 MG TAB PO SCH (10:28)
[2024-01-23] MEDS: Metolazone 5 MG TAB PO SCH (10:28)
[2024-01-23] MEDS: Metoprolol Tartrate 25 MG TAB PO SCH ×2 (10:28→19:59)
[2024-01-23] MEDS: Furosemide 40 MG TAB PO SCH ×2 (10:28→17:18)
[2024-01-23] MEDS: Magnesium 2 GM/50 ML(in water) 2 GM in Premix 1 BAG IVPB SCH (10:29)
[2024-01-23] MEDS: Potassium Chloride 20 MEQ in Premix 1 BAG IVPB SCH (10:33)
[2024-01-23] MEDS: Lorazepam 1 MG TAB PO PRN (12:13)
[2024-01-23] MEDS: Gabapentin 300 MG CAP PO SCH (13:47)
[2024-01-23] MEDS ORDERED: Lorazepam 0.5 MG TAB PO PRN (15:01)
[2024-01-23] MEDS: Thiamine 100 MG TAB PO SCH (15:07)
[2024-01-23] MEDS ORDERED: Ipratropium/Albuterol 3 ML NEB NEB PRN (15:34)
[2024-01-23] MEDS: NIFEdipine XL 30 MG ER.TAB PO SCH (17:18)
[2024-01-23] MEDS: Docusate 100 MG CAP PO SCH (20:39)
[2024-01-24] MEDS: Potassium Chloride 20 MEQ TAB PO SCH (00:43)
[2024-01-24 05:58] LABS: CK (CPK) 569 U/L (30-200); Magnesium 1.8 mg/dL (1.6-2.6)
[2024-01-24 06:08] LABS: Phosphorus 1.9 mg/dL (2.3-4.7)
[2024-01-24] MEDS: Lisinopril 20 MG TAB ONE (07:54)
[2024-01-24] MEDS: Labetalol HCl 100 MG/20 ML VIAL ONE (07:54)
[2024-01-24] MEDS ORDERED: Metolazone 5 MG TAB PO SCH (09:00)
[2024-01-24] MEDS ORDERED: Lisinopril 20 MG TAB PO SCH (09:00)
[2024-01-24] MEDS ORDERED: Furosemide 40 MG TAB PO SCH (09:00)
[2024-01-24] MEDS: Magnesium 2 GM/50 ML(in water) 2 GM in Premix 1 BAG IVPB SCH (09:16)
[2024-01-24] MEDS: PHOS-NAK 1 PKT PACK PO SCH (09:16)
[2024-01-24] MEDS: Furosemide 40 MG TAB PO SCH (09:17)
[2024-01-24] MEDS: NIFEdipine XL 30 MG ER.TAB PO SCH (09:18)
[2024-01-24 16:53] LABS: Anion Gap 19 mmol/L (10-20); BUN (Urea Nitrogen) 12 mg/dL (8.4-25.7); Calc. Creatinine Clearance 102 mL/min (70-130); Carbon Dioxide 24 mmol/L (23-31); Chloride 95 mmol/L (98-107); Estimated GFR 66; Glucose 135 mg/dL (83-110); Potassium 4.4 mmol/L (3.5-5.1); Sodium 134 mmol/L (136-145)
[2024-01-25 05:23] LABS: Anion Gap 16 mmol/L (10-20); BUN (Urea Nitrogen) 13 mg/dL (8.4-25.7); Calc. Creatinine Clearance 102 mL/min (70-130); Calcium 9.1 mg/dL (7.8-10.44); Carbon Dioxide 30 mmol/L (23-31); Chloride 93 mmol/L (98-107); Estimated GFR 66; Glucose 103 mg/dL (83-110); Magnesium 1.7 mg/dL (1.6-2.6); Potassium 3.2 mmol/L (3.5-5.1); Sodium 136 mmol/L (136-145)
[2024-01-25] MEDS: Magnesium 2 GM/50 ML(in water) 2 GM in Premix 1 BAG IVPB SCH (09:00)
[2024-01-25] MEDS: Potassium Chloride 20 MEQ TAB PO SCH (12:55)
[2024-01-25] MEDS: Amiodarone 200 MG TAB PO SCH (13:49)
[2024-01-25] MEDS: chlordiazePOXIDE HCl 5 MG CAP PO SCH ×2 (16:00→21:09)
[2024-01-25] MEDS ORDERED: Buprenorphine 8mg/Naloxone 2mg per 1 FILM PO PRN (18:49)
[2024-01-25] MEDS ORDERED: Buprenorphine HCl 2 MG SL TAB PO SCH (21:00)
[2024-01-25] MEDS: Buprenorphine 8mg/Naloxone 2mg per 1 FILM PO SCH (21:07)
[2024-01-26 04:37] LABS: Anion Gap 15 mmol/L (10-20); BUN (Urea Nitrogen) 20 mg/dL (8.4-25.7); Calc. Creatinine Clearance 63 mL/min (70-130); Calcium 9.1 mg/dL (7.8-10.44); Carbon Dioxide 31 mmol/L (23-31); Chloride 90 mmol/L (98-107); Estimated GFR 38; Glucose 100 mg/dL (83-110); Magnesium 1.9 mg/dL (1.6-2.6); Potassium 3.7 mmol/L (3.5-5.1); Sodium 132 mmol/L (136-145)
[2024-01-26] MEDS: Magnesium 2 GM/50 ML(in water) 2 GM in Premix 1 BAG IVPB SCH (09:07)
[2024-01-26] MEDS: chlordiazePOXIDE HCl 5 MG CAP PO SCH (09:08)
[2024-01-26] MEDS: Amiodarone 200 MG TAB PO SCH (09:08)
[2024-01-26 13:49] LABS: Anion Gap 13 mmol/L (10-20); BUN (Urea Nitrogen) 24 mg/dL (8.4-25.7); Calc. Creatinine Clearance 59 mL/min (70-130); Calcium 9.5 mg/dL (7.8-10.44); Carbon Dioxide 32 mmol/L (23-31); Chloride 89 mmol/L (98-107); Estimated GFR 36; Glucose 192 mg/dL (83-110); Potassium 4.4 mmol/L (3.5-5.1); Sodium 130 mmol/L (136-145)
[2024-01-26] MEDS: Sodium Chloride 0.9% 1,000 ML IV SCH (17:16)
[2024-01-27 05:45] LABS: Anion Gap 13 mmol/L (10-20); BUN (Urea Nitrogen) 31 mg/dL (8.4-25.7); Calc. Creatinine Clearance 58 mL/min (70-130); Calcium 8.9 mg/dL (7.8-10.44); Carbon Dioxide 31 mmol/L (23-31); Chloride 91 mmol/L (98-107); Estimated GFR 35; Glucose 102 mg/dL (83-110); Magnesium 2.3 mg/dL (1.6-2.6); Potassium 3.9 mmol/L (3.5-5.1); Sodium 131 mmol/L (136-145)
[2024-01-27] MEDS: chlordiazePOXIDE HCl 5 MG CAP PO SCH (09:57)
[2024-01-27 10:52] LABS: ALT (SGPT) 47 U/L (8-55); AST (SGOT) 47 U/L (5-34); Albumin 3.7 g/dL (3.4-4.8); Alkaline Phosphatase 73 U/L (40-110); Anion Gap 16 mmol/L (10-20); BUN (Urea Nitrogen) 29 mg/dL (8.4-25.7); Bilirubin, Total 0.9 mg/dL (0.2-1.2); Calc. Creatinine Clearance 66 mL/min (70-130); Calcium 9.3 mg/dL (7.8-10.44); Carbon Dioxide 30 mmol/L (23-31); Chloride 91 mmol/L (98-107); Estimated GFR 41; Glucose 185 mg/dL (83-110); Magnesium 2.1 mg/dL (1.6-2.6); Protein, Total 7.7 g/dL (5.8-8.1); Sodium 133 mmol/L (136-145)
[2024-01-27] MEDS: Apixaban 5 MG TAB PO SCH ×2 (11:07→21:55)
[2024-01-27 11:12] LABS: Free T4 (Free Thyroxine) 0.77 ng/dL (0.70-1.48); Thyroid Stimulating Hormone 1.0568 uIU/mL (0.35-4.94)
[2024-01-27 16:31] VITALS: BMI 33.2
[2024-01-27 18:50] LABS: HBsAg Index 0.28 S/CO (0-0.99); Hep B Surf Ag NONREACTIVE S/CO (NonReactive); Hep C IgG Ab NONREACTIVE S/CO (NonReactive); Hep C Index 0.08 S/CO (0-0.79)
[2024-01-27] MEDS: Zolpidem Tartrate 5 MG TAB PO SCH (21:56)
[2024-01-27 23:33] LABS: Bacteria/HPF None Seen HPF (None Seen); Bilirubin Negative (Negative); Blood, Urine Trace (Negative); Clarity Clear (Clear); Glucose, Urine (Dipstick) Normal (Negative); Ketone, Urine Negative (Negative); Leukocyte Negative Leu/uL (Negative); Nitrite Negative (Negative); Protein, Urine (Dipstick) Negative (Neg-Trace); RBC/HPF 0-3 HPF (0-3); Specific Gravity, Urine 1.008 (1.002-1.036); Squamous Epithelial None Seen HPF (0-3); Urobilinogen Normal mg/dL (Less than 2); WBC/HPF 0-3 HPF (0-3)
[2024-01-28 04:50] LABS: #Basophils 0.08 10x3/uL (0.0-0.2); %Basophils 0.7 % (0.0-1.0); %Eosinophils 3.1 % (0.0-10.0); %Lymphocytes 31.5 % (21.0-51.0); %Monocytes 12.9 % (0.0-10.0); %Neutrophils 51.5 % (42.0-75.0); Hematocrit 53.6 % (42.0-52.0); Hemoglobin 17.8 g/dL (14.0-18.0); Mean Corpuscular HGB CONC 33.2 g/dL (32.0-36.0); Mean Corpuscular Hemoglobin 30.5 pg (27.0-31.0); Mean Corpuscular Volume 91.9 fL (78.0-98.0); Mean Platelet Volume 10.7 fL (7.4-10.4); Platelet Count 261 10x3/uL (130-400); RBC Distribution Width 14.2 % (11.5-14.5); Red Blood Cell (RBC) Count 5.83 mill/uL (4.70-6.10)
[2024-01-28 05:11] LABS: Anion Gap 13 mmol/L (10-20); BUN (Urea Nitrogen) 22 mg/dL (8.4-25.7); Calc. Creatinine Clearance 78 mL/min (70-130); Calcium 9.4 mg/dL (7.8-10.44); Carbon Dioxide 29 mmol/L (23-31); Chloride 94 mmol/L (98-107); Estimated GFR 50; Glucose 97 mg/dL (83-110); Magnesium 2.2 mg/dL (1.6-2.6); Potassium 4.2 mmol/L (3.5-5.1); Sodium 132 mmol/L (136-145)
[2024-01-28] MEDS: Amiodarone 200 MG TAB PO SCH (09:26)
[2024-01-28 16:27] VITALS: BP 158/81; TEMP 97.5
[2024-02-03 07:27] LABS: Anion Gap 13 mmol/L (10-20); BUN (Urea Nitrogen) 16 mg/dL (8.4-25.7); Calc. Creatinine Clearance 108 mL/min (70-130); Calcium 8.9 mg/dL (7.6-10.4); Carbon Dioxide 30 mmol/L (23-31); Chloride 98 mmol/L (98-107); Estimated GFR 69; Glucose 137 mg/dL (83-110); Hemoglobin 16.8 g/dL (14.0-18.0); Mean Corpuscular Volume 92.6 fL (78.0-98.0); Potassium 3.4 mmol/L (3.5-5.1); Sodium 138 mmol/L (136-145)
[2024-02-03 07:28] LABS: Mean Corpuscular HGB CONC 33.6 g/dL (32.0-36.0); Mean Corpuscular Hemoglobin 31.1 pg (27.0-31.0); Mean Platelet Volume 10.4 fL (7.4-10.4); Platelet Count 334 10x3/uL (130-400); RBC Distribution Width 13.9 % (11.5-14.5)
[2024-02-03 07:29] LABS: #Basophils 0.05 10x3/uL (0.0-0.2); %Basophils 0.5 % (0.0-1.0); %Eosinophils 2.1 % (0.0-10.0); %Lymphocytes 23.9 % (21.0-51.0); %Monocytes 9.1 % (0.0-10.0)
== END 2024-01-28 16:35 | disposition home or self-care (01) | DRG 308 ==
LOC: 2NO 13:58 → CCU 01-21 17:48 → 2NO 01-23 14:32
PROVIDERS: ADMIT Internal Medicine; ATTEND Internal Medicine
DX: I44.0 Atrioventricular block, first degree (principal); G92.8 Other toxic encephalopathy; F10.131 Alcohol abuse with withdrawal delirium; N17.9 Acute kidney failure, unspecified; E87.1 Hypo-osmolality and hyponatremia; I45.2 Bifascicular block; I48.92 Unspecified atrial flutter; G47.33 Obstructive sleep apnea (adult) (pediatric); E78.5 Hyperlipidemia, unspecified; E03.9 Hypothyroidism, unspecified; I48.0 Paroxysmal atrial fibrillation; N18.2 Chronic kidney disease, stage 2 (mild); I12.9 Hypertensive chronic kidney disease with stage 1 through stage 4 chronic kidney disease, or unspecified chronic kidney disease; M10.9 Gout, unspecified; F41.9 Anxiety disorder, unspecified; E83.42 Hypomagnesemia; E87.6 Hypokalemia; E86.0 Dehydration; F32.A Depression, unspecified; E66.9 Obesity, unspecified; Z68.33 Body mass index [BMI] 33.0-33.9, adult; W19.XXXA Unspecified fall, initial encounter; Y93.89 Activity, other specified; Y92.89 Other specified places as the place of occurrence of the external cause; N40.0 Benign prostatic hyperplasia without lower urinary tract symptoms; R00.1 Bradycardia, unspecified
CPT/HCPCS: 36415; 70551; 80048; 81001; 82550; 83735; 84100; 84439; 84443; 85025; 86803; 87340; 93005; 93010; 93306; 93970; 94660; J0360; J0571; J1630; J2060; J3475; J3480; J7030

== ENCOUNTER 2024-09-25 20:37 | Inpatient (IN) | payer MEDICARE ==
[2024-09-25] MEDS ORDERED: Calcium Carbonate 500 MG ChewTAB PO PRN (22:23)
[2024-09-25] MEDS ORDERED: Ondansetron PF 4 MG/2 ML Vial IVP PRN (22:23)
[2024-09-25] MEDS ORDERED: Electrolyte Replacement Protocol 1 EACH FS SCH ×2 (22:30)
[2024-09-25 22:38] VITALS: BMI 28.9
[2024-09-26 04:53] LABS: #Basophils 0.03 10x3/uL (0.0-0.2); #Eosinophils 0.09 10x3/uL (0.0-0.7); #Monocytes 0.79 10x3/uL (0.11-0.59); #Neutrophils 4.63 10x3/uL (1.40-6.50); %Basophils 0.4 % (0.0-1.0); %Eosinophils 1.2 % (0.0-10.0); %Lymphocytes 24.3 % (21.0-51.0); %Monocytes 10.7 % (0.0-10.0); %Neutrophils 62.9 % (42.0-75.0); Hematocrit 34.9 % (42.0-52.0); Hemoglobin 12.1 g/dL (14.0-18.0); Mean Corpuscular Hemoglobin 31.9 pg (27.0-31.0); Mean Corpuscular Volume 92.1 fL (78.0-98.0); Platelet Count 244 10x3/uL (130-400); Red Blood Cell (RBC) Count 3.79 mill/uL (4.70-6.10); White Blood Cell (WBC) Count 7.37 10x3/uL (4.8-10.8)
[2024-09-26 05:04] LABS: ALT (SGPT) 35 U/L (Less than 45); AST (SGOT) 59 U/L (11-34); Albumin 3.2 g/dL (3.1-4.5); Alkaline Phosphatase 49 U/L (40-110); Anion Gap 19 mmol/L (10-20); BUN (Urea Nitrogen) 26 mg/dL (8.4-25.7); Bilirubin, Total 1.0 mg/dL (0.3-1.2); Calc. Creatinine Clearance 88 mL/min (70-130); Calcium 8.8 mg/dL (7.8-10.44); Carbon Dioxide 30 mmol/L (23-31); Chloride 89 mmol/L (98-107); Globulin 4.2 g/dL (2.4-3.5); Glucose 130 mg/dL (83-110); Potassium 3.4 mmol/L (3.5-5.1); Sodium 135 mmol/L (136-145)
[2024-09-26] MEDS: Multivit, Therapeutic 1 TAB PO SCH (08:20)
[2024-09-26] MEDS: NIFEdipine XL 30 MG ER.TAB PO SCH (08:20)
[2024-09-26] MEDS: Apixaban 5 MG TAB PO SCH (08:20)
[2024-09-26] MEDS: Folic Acid 1 MG TAB PO SCH (08:20)
[2024-09-26] MEDS: Diltiazem HCl/D5W 125 MG in Premix 1 BAG IVPB SCH (08:42)
[2024-09-26] MEDS: Allopurinol 300 MG TAB PO SCH (20:48)
[2024-09-27] MEDS: Amiodarone 200 MG TAB PO SCH (21:51)
[2024-09-28] MEDS: Diltiazem HCl/D5W 125 MG in Premix 1 BAG IVPB SCH (09:29)
[2024-09-28] MEDS: Thiamine 100 MG TAB PO SCH (21:07)
[2024-09-28] MEDS: Digoxin 0.5 MG/2 ML AMP SLOW IVP SCH (22:40)
[2024-09-29 04:52] LABS: #Basophils 0.04 10x3/uL (0.0-0.2); #Eosinophils 0.16 10x3/uL (0.0-0.7); #Monocytes 1.40 10x3/uL (0.11-0.59); #Neutrophils 5.98 10x3/uL (1.40-6.50); %Basophils 0.4 % (0.0-1.0); %Eosinophils 1.5 % (0.0-10.0); %Lymphocytes 27.4 % (21.0-51.0); %Monocytes 13.3 % (0.0-10.0); %Neutrophils 56.8 % (42.0-75.0); Hematocrit 40.3 % (42.0-52.0); Hemoglobin 14.4 g/dL (14.0-18.0); Mean Corpuscular Hemoglobin 31.6 pg (27.0-31.0); Mean Corpuscular Volume 88.4 fL (78.0-98.0); Platelet Count 432 10x3/uL (130-400); Red Blood Cell (RBC) Count 4.56 mill/uL (4.70-6.10); White Blood Cell (WBC) Count 10.52 10x3/uL (4.8-10.8)
[2024-09-29 04:59] LABS: Anion Gap 17 mmol/L (10-20); BUN (Urea Nitrogen) 29 mg/dL (8.4-25.7); Calc. Creatinine Clearance 69 mL/min (70-130); Calcium 9.7 mg/dL (7.8-10.44); Carbon Dioxide 26 mmol/L (23-31); Chloride 88 mmol/L (98-107); Glucose 180 mg/dL (83-110); Magnesium 1.8 mg/dL (1.6-2.6); Potassium 2.9 mmol/L (3.5-5.1); Sodium 128 mmol/L (136-145)
[2024-09-29] MEDS: Magnesium 2 GM/50 ML(in water) 2 GM in Premix 1 BAG IVPB SCH (09:27)
[2024-09-29] MEDS: Melatonin 3 MG TAB PO PRN (23:36)
[2024-09-30 04:58] LABS: Hematocrit 37.9 % (42.0-52.0); Hemoglobin 13.4 g/dL (14.0-18.0); Mean Corpuscular Hemoglobin 32.2 pg (27.0-31.0); Mean Corpuscular Volume 91.1 fL (78.0-98.0); Platelet Count 437 10x3/uL (130-400); Red Blood Cell (RBC) Count 4.16 mill/uL (4.70-6.10); White Blood Cell (WBC) Count 9.63 10x3/uL (4.8-10.8)
[2024-09-30 05:15] LABS: Anion Gap 16 mmol/L (10-20); BUN (Urea Nitrogen) 32 mg/dL (8.4-25.7); Calc. Creatinine Clearance 71 mL/min (70-130); Calcium 9.4 mg/dL (7.8-10.44); Carbon Dioxide 26 mmol/L (23-31); Chloride 87 mmol/L (98-107); Glucose 155 mg/dL (83-110); Potassium 3.4 mmol/L (3.5-5.1); Sodium 126 mmol/L (136-145)
[2024-09-30 10:23] LABS: Osmolality, Serum 280 mOsm/kg (280-301)
[2024-09-30 11:22] LABS: Osmolality, Urine 387 mOsm/kg (50-1200)
[2024-10-01 05:04] LABS: Anion Gap 13 mmol/L (10-20); BUN (Urea Nitrogen) 31 mg/dL (8.4-25.7); Calc. Creatinine Clearance 83 mL/min (70-130); Calcium 9.3 mg/dL (7.8-10.44); Carbon Dioxide 29 mmol/L (23-31); Chloride 91 mmol/L (98-107); Glucose 153 mg/dL (83-110); Potassium 3.3 mmol/L (3.5-5.1); Sodium 130 mmol/L (136-145)
[2024-10-01] MEDS ORDERED: PHENYLEPHRINE-NS 100 MCG/ML 10 ML SYRINGE ONE (07:20)
[2024-10-01] MEDS: Acetaminophen 325 MG TAB PO PRN (10:01)
[2024-10-01] MEDS: PARoxetine 20 MG TAB PO SCH (10:03)
[2024-10-01] MEDS: Potassium Bicarbonate/Cit Ac 20 MEQ TAB PO SCH (11:49)
[2024-10-01 14:13] VITALS: BMI 29.0
[2024-10-01] MEDS: Melatonin 3 MG TAB PO PRN (21:02)
[2024-10-02 04:54] LABS: Anion Gap 14 mmol/L (10-20); BUN (Urea Nitrogen) 30 mg/dL (8.4-25.7); Calc. Creatinine Clearance 79 mL/min (70-130); Calcium 9.0 mg/dL (7.8-10.44); Carbon Dioxide 28 mmol/L (23-31); Chloride 94 mmol/L (98-107); Glucose 237 mg/dL (83-110); Magnesium 2.0 mg/dL (1.6-2.6); Potassium 3.4 mmol/L (3.5-5.1); Sodium 133 mmol/L (136-145)
[2024-10-02] MEDS: Magnesium 2 GM/50 ML(in water) 2 GM in Premix 1 BAG IVPB SCH (09:06)
[2024-10-03 04:45] LABS: Hematocrit 34.7 % (42.0-52.0); Hemoglobin 11.8 g/dL (14.0-18.0); Mean Corpuscular Hemoglobin 31.5 pg (27.0-31.0); Mean Corpuscular Volume 92.5 fL (78.0-98.0); Platelet Count 443 10x3/uL (130-400); Red Blood Cell (RBC) Count 3.75 mill/uL (4.70-6.10); White Blood Cell (WBC) Count 8.31 10x3/uL (4.8-10.8)
[2024-10-03 05:22] LABS: Anion Gap 13 mmol/L (10-20); BUN (Urea Nitrogen) 24 mg/dL (8.4-25.7); Calc. Creatinine Clearance 87 mL/min (70-130); Calcium 9.7 mg/dL (7.8-10.44); Carbon Dioxide 30 mmol/L (23-31); Chloride 95 mmol/L (98-107); Glucose 126 mg/dL (83-110); Potassium 3.7 mmol/L (3.5-5.1); Sodium 134 mmol/L (136-145)
[2024-10-04 10:25] VITALS: BP 137/83; TEMP 97.8
== END 2024-10-04 11:45 | DRG 309 ==
LOC: 2NO 21:55
PROVIDERS: ADMIT Student in an Organized Health Care Education/Training Program; ATTEND Internal Medicine
PROC: HZ2ZZZZ Detoxification Services for Substance Abuse Treatment (ICD-10-PCS; principal; 2024-09-25)
PROC: 5A09357 Assistance with Respiratory Ventilation, Less than 24 Consecutive Hours, Continuous Positive Airway Pressure (ICD-10-PCS; 2024-09-28)
PROC: 5A2204Z Restoration of Cardiac Rhythm, Single (ICD-10-PCS; 2024-10-01)
PROC: 3E033XZ Introduction of Vasopressor into Peripheral Vein, Percutaneous Approach (ICD-10-PCS; 2024-10-01)
DX: I48.92 Unspecified atrial flutter (principal); E87.1 Hypo-osmolality and hyponatremia; F10.239 Alcohol dependence with withdrawal, unspecified; I50.32 Chronic diastolic (congestive) heart failure; I48.0 Paroxysmal atrial fibrillation; E87.6 Hypokalemia; G47.33 Obstructive sleep apnea (adult) (pediatric); M10.9 Gout, unspecified; E03.9 Hypothyroidism, unspecified; I11.0 Hypertensive heart disease with heart failure; I49.3 Ventricular premature depolarization; F41.9 Anxiety disorder, unspecified; Z96.651 Presence of right artificial knee joint; Z98.890 Other specified postprocedural states; Z79.899 Other long term (current) drug therapy; Z79.01 Long term (current) use of anticoagulants
CPT/HCPCS: 36415; 70450; 71045; 80048; 80053; 80307; 82550; 83605; 83690; 83735; 83880; 83930; 83935; 84300; 84484; 85025; 85027; 92960; 93005; 93306; 96374; 96375; 99152; 99153; J1160; J2060; J2250; J3010; J3411; J3475; J3480